=== PATIENT | female | born 1940 | race African-American/Black ===

== ENCOUNTER 2021-06-09 06:25 | Inpatient (IN) ==
[~2021-06-09 06:25] MED LIST: LORazepam 2 MG/1 ML VIAL ONE; NALOXONE 0.4 MG/ML VIAL ONE
[2021-06-09] MEDS ORDERED: PHENYTOIN IV ONE (06:39)
[2021-06-09] MEDS ORDERED: SODIUM CHLORIDE 0.9% IV ONE (06:39)
[2021-06-09] MEDS ORDERED: ETOMIDATE 20 MG/10 ML VIAL IV ONE (06:40)
[2021-06-09] MEDS ORDERED: ROCURONIUM 100 MG/10 ML VIAL IV ONE (06:40)
[2021-06-09 07:16] LABS: Basophils # 0.1 10*3/uL (0.0-0.2); Basophils % 0.4 % (0.0-0.8); Eosinophils # 0.3 10*3/uL (0.0-0.87); Eosinophils % 1.8 % (0.00-10.9); Hematocrit 50.7 VOL% (35.7-47.0); Immature Granulocytes % 0.7 %; Immature Granulocytes Absolute 0.11 #; Lymphocytes # 6.2 10*3/uL (1.4-4.0); Lymphocytes % 40.2 % (21.3-54.2); Mean Corpuscular HGB Conc 29.6 GM/DL (32-36); Mean Corpuscular Volume 88.2 FL (87-102); Monocytes % 7.5 % (1.7-12.7); Neutrophils % 49.4 % (38.7-73.9); Platelet Count 230 T/CUMM (130-400); Red Blood Count 5.75 MC/CUMM (3.8-5.5); Red Cell Distribution Width 16.3 % (9.3-17.3); White Blood Count 15.3 T/CUMM (4-12)
[2021-06-09 07:25] LABS: Alanine Aminotransferase 13 U/L (13-56); Albumin 3.6 G/DL (3.4-5.0); Alkaline Phosphatase 142 U/L (45-117); Aspartate Amino Transferase 15 U/L (0-37); Bilirubin,Total < 0.39 MG/DL (0.20-1.00); Blood Urea Nitrogen 8 MG/DL (7-18); Calcium 9.3 MG/DL (8.5-10.1); Carbon Dioxide 15 MMOL/L (21-32); Estimated Glom Filtration Rate 54 ML/MIN; Glucose 217 MG/DL (74-106); Osmolality,Calculated 281.5 MOS/KG (273-304); Potassium 2.6 MMOL/L (3.5-5.1); Sodium 139 MMOL/L (136-145); Total Protein 9.2 G/DL (6.4-8.2)
[2021-06-09 07:31] LABS: PT Patient Result 10.9 SECS (10.5-12.0); Partial Thromboplastin Time 24.5 SECS (23.8-32.1)
[2021-06-09 07:44] LABS: Salicylate < 2.8 MG/DL (2.8-20)
[2021-06-09 07:45] LABS: Acetaminophen < 2.0 UG/ML (10-30)
[2021-06-09 08:21] LABS: Hyaline Casts,Urine 1 /LPF (0-3); Mucus,Urine Occasional /LPF (Occasional); RBC,Urine 1 /HPF (0-4); Squamous Epithelial Cell,Urine Occasional /HPF (0-10); Urine Appearance Clear (Clear); Urine Color Light Yellow (Yellow)
[2021-06-09] MEDS ORDERED: LABETALOL 20 MG/4 ML SYRINGE IV STA (08:21)
[2021-06-09 08:22] LABS: Bilirubin,Urine Negative (Negative); Blood, Urine Small mg/dL (Negative); Glucose,Urine (UA) Negative (Negative); Ketones,Urine Negative (Negative); Nitrite,Urine Negative (Negative); Protein,Urine >=300 MG/DL; Urine Specific Gravity 1.025 (1.001-1.035); Urine Urobilinogen 0.2 EU/DL (<2.0)
[2021-06-09 08:24] LABS: Barbiturates Screen,Urine Negative (Negative); Benzodiazepines Screen,Urine Negative (Negative); Cannabinoid Screen,Urine Negative (Negative); Opiate Screen,Urine Negative (Negative); Phencyclidine Screen,Urine Negative (Negative)
[2021-06-09] MEDS ORDERED: POTASSIUM CHLORIDE RIDER 20 MEQ/100 ML PREMIX IV STA (08:50)
[2021-06-09] MEDS ORDERED: POTASSIUM CHLORIDE RIDER 20 MEQ/200 ML PREMIX IV STA (08:58)
[2021-06-09 08:59] LABS: Allen Test Positive; Pt O2 Delivery Device Ventilator
[2021-06-09 09:01] LABS: ABG Base Excess -2.6 MMOL/L (-2.5-2.5); ABG HCO3 21.6 MMOL/L (20-26); ABG Oxygen Saturation 98.3 % (95-100); ABG PCO2 35.8 MM HG (35-48); ABG PH 7.398 (7.35-7.45); ABG PO2 114.8 MM HG (80-95); ABG TCO2 22.7 MMOL/L (23-27)
[2021-06-09 09:05] LABS: Lactic Acid 6.3 MMOL/L (0.4-2.0)
[2021-06-09] MEDS ORDERED: ALBUTEROL 2.5 MG/3 ML NEB RESP TX PRN (09:41)
[2021-06-09] MEDS ORDERED: ONDANSETRON 4 MG/2 ML VIAL IV PRN (09:42)
[2021-06-09] MEDS ORDERED: MAGNESIUM SULF RIDER 2 GM/50 ML PREMIX IV PRN (09:44)
[2021-06-09] MEDS ORDERED: MAGNESIUM SULF RIDER 4 GM/100 ML PREMIX IV PRN (09:44)
[2021-06-09] MEDS ORDERED: GLUCAGON 1 MG VIAL IM PRN (09:44)
[2021-06-09] MEDS ORDERED: LORazepam 2 MG/1 ML VIAL IV PRN (09:45)
[2021-06-09] MEDS ORDERED: DEXTROSE 10% 250 ML BAG IV PRN (09:55)
[2021-06-09 10:13] LABS: Hypochromia 1+; Platelet Estimate Normal; Polychromasia Slight
[2021-06-09] MEDS ORDERED: SODIUM CHLORIDE 0.9% 1,000 ML IV ONE (10:24)
[2021-06-09] MEDS: INSULIN REGULAR 100 UNIT/ML SUBCUT SCH ×3 (13:09→23:35)
[2021-06-09] MEDS: ENOXAPARIN 40 MG/0.4 ML SYRINGE SUBCUT SCH (13:10)
[2021-06-09] MEDS: PANTOPRAZOLE 40 MG VIAL IV SCH (13:11)
[2021-06-09] MEDS: PIPERACILLIN/TAZOBACTAM 3,375 MG in SODIUM CHLORIDE 0.9% 100 ML IV SCH ×2 (13:36→20:43)
[2021-06-09] MEDS: SODIUM CHLORIDE 0.9% 1,000 ML IV SCH ×2 (16:00→18:18)
[2021-06-10 03:48] LABS: ABG Base Excess 1.6 MMOL/L (-2.5-2.5); ABG HCO3 25.8 MMOL/L (20-26); ABG PCO2 32.3 MM HG (35-48); ABG PH 7.486 (7.35-7.45); ABG TCO2 21.4 MMOL/L (23-27)
[2021-06-10] MEDS: PIPERACILLIN/TAZOBACTAM 3,375 MG in SODIUM CHLORIDE 0.9% 100 ML IV SCH ×3 (05:39→20:29)
[2021-06-10 06:00] LABS: Basophils # 0.1 10*3/uL (0.0-0.2); Basophils % 0.6 % (0.0-0.8); Eosinophils # 0.2 10*3/uL (0.0-0.87); Hematocrit 36.9 VOL% (35.7-47.0); Immature Granulocytes % 0.7 %; Immature Granulocytes Absolute 0.08 #; Lymphocytes # 2.4 10*3/uL (1.4-4.0); Lymphocytes % 22.2 % (21.3-54.2); Mean Corpuscular HGB Conc 32.2 GM/DL (32-36); Mean Corpuscular Volume 81.5 FL (87-102); Mean Platelet Volume 10.7 FL (9.6-12.0); Monocytes % 9.7 % (1.7-12.7); Neutrophils % 64.8 % (38.7-73.9); Platelet Count 195 T/CUMM (130-400); Red Blood Count 4.53 MC/CUMM (3.8-5.5); Red Cell Distribution Width 16.2 % (9.3-17.3); White Blood Count 10.8 T/CUMM (4-12)
[2021-06-10 06:02] LABS: Hemoglobin 11.9 GM/DL (12.0-16.0)
[2021-06-10 06:40] LABS: Albumin 2.5 G/DL (3.4-5.0); Bilirubin,Total 0.5 MG/DL (0.20-1.00); Calcium 8.6 MG/DL (8.5-10.1); Osmolality,Calculated 281.1 MOS/KG (273-304)
[2021-06-10] MEDS: INSULIN REGULAR 100 UNIT/ML SUBCUT SCH ×3 (06:43→19:02)
[2021-06-10 06:47] LABS: Free T4 (Free Thyroxine) 1.19 NG/DL (0.76-1.46); Thyroid Stimulating Hormone 0.929 uIU/ml (0.358-3.74)
[2021-06-10] MEDS: SODIUM CHLORIDE 0.9% 1,000 ML IV SCH ×2 (07:12→16:24)
[2021-06-10] MEDS: POTASSIUM BICARB EFFERVESCENT 20 MEQ TAB.EFF PER TUBE PRN (09:27)
[2021-06-10] MEDS: POTASSIUM CHLORIDE 20 MEQ TABLET PO SCH ×4 (09:31→20:30)
[2021-06-10] MEDS: PANTOPRAZOLE 40 MG VIAL IV SCH (11:45)
[2021-06-10] MEDS: ENOXAPARIN 40 MG/0.4 ML SYRINGE SUBCUT SCH (11:48)
[2021-06-11] MEDS: INSULIN REGULAR 100 UNIT/ML SUBCUT SCH ×5 (00:33→23:59)
[2021-06-11 03:58] LABS: ABG Base Excess 0.2 MMOL/L (-2.5-2.5); ABG HCO3 24.4 MMOL/L (20-26); ABG Oxygen Saturation 98.9 % (95-100); ABG PH 7.426 (7.35-7.45); ABG PO2 183.4 MM HG (80-95); ABG TCO2 25.6 MMOL/L (23-27)
[2021-06-11] MEDS: SODIUM CHLORIDE 0.9% 1,000 ML IV SCH ×3 (04:09→21:44)
[2021-06-11] MEDS: PIPERACILLIN/TAZOBACTAM 3,375 MG in SODIUM CHLORIDE 0.9% 100 ML IV SCH ×3 (04:47→21:55)
[2021-06-11 05:21] LABS: Basophils # 0.1 10*3/uL (0.0-0.2); Basophils % 0.7 % (0.0-0.8); Eosinophils # 0.2 10*3/uL (0.0-0.87); Eosinophils % 2.3 % (0.00-10.9); Hematocrit 36.9 VOL% (35.7-47.0); Hemoglobin 11.4 GM/DL (12.0-16.0); Immature Granulocytes % 0.8 %; Immature Granulocytes Absolute 0.07 #; Lymphocytes # 1.7 10*3/uL (1.4-4.0); Lymphocytes % 19.2 % (21.3-54.2); Mean Corpuscular HGB Conc 30.9 GM/DL (32-36); Mean Platelet Volume 10.9 FL (9.6-12.0); Platelet Count 148 T/CUMM (130-400); Red Blood Count 4.34 MC/CUMM (3.8-5.5); White Blood Count 8.7 T/CUMM (4-12)
[2021-06-11 05:44] LABS: Calcium 8.4 MG/DL (8.5-10.1); Potassium 3.7 MMOL/L (3.5-5.1)
[2021-06-11] MEDS ORDERED: DEXMEDETOMIDINE 200 MCG in SODIUM CHLORIDE 0.9% 48 ML IV PRN (07:58)
[2021-06-11] MEDS: MULTIVITAMIN LIQUID (CENTRUM) 60 ML BOTTLE PO SCH (09:21)
[2021-06-11] MEDS: ENOXAPARIN 40 MG/0.4 ML SYRINGE SUBCUT SCH (12:25)
[2021-06-11] MEDS: PANTOPRAZOLE 40 MG VIAL IV SCH (13:13)
[2021-06-11] MEDS: DEXMEDETOMIDINE 400 MCG in SODIUM CHLORIDE 0.9% 96 ML IV PRN (15:11)
[2021-06-12] MEDS: DEXMEDETOMIDINE 400 MCG in SODIUM CHLORIDE 0.9% 96 ML IV PRN (02:45)
[2021-06-12 04:51] LABS: Basophils % 0.4 % (0.0-0.8); Eosinophils # 0.2 10*3/uL (0.0-0.87); Eosinophils % 1.8 % (0.00-10.9); Hematocrit 34.4 VOL% (35.7-47.0); Hemoglobin 10.8 GM/DL (12.0-16.0); Immature Granulocytes % 0.9 %; Immature Granulocytes Absolute 0.09 #; Lymphocytes % 20.1 % (21.3-54.2); Mean Corpuscular HGB Conc 31.4 GM/DL (32-36); Mean Corpuscular Volume 83.9 FL (87-102); Mean Platelet Volume 11.4 FL (9.6-12.0); Monocytes % 10.2 % (1.7-12.7); Neutrophils % 66.6 % (38.7-73.9); Platelet Count 163 T/CUMM (130-400); Red Cell Distribution Width 16.9 % (9.3-17.3); White Blood Count 9.7 T/CUMM (4-12)
[2021-06-12 04:58] LABS: Calcium 8.1 MG/DL (8.5-10.1); Osmolality,Calculated 283.8 MOS/KG (273-304)
[2021-06-12] MEDS: PIPERACILLIN/TAZOBACTAM 3,375 MG in SODIUM CHLORIDE 0.9% 100 ML IV SCH ×3 (05:20→20:59)
[2021-06-12 05:36] LABS: ABG Base Excess -0.8 MMOL/L (-2.5-2.5); ABG HCO3 22.5 MMOL/L (20-26); ABG Oxygen Saturation 98.9 % (95-100); ABG PCO2 32.4 MM HG (35-48); ABG PH 7.459 (7.35-7.45); ABG PO2 155.7 MM HG (80-95); ABG TCO2 23.5 MMOL/L (23-27)
[2021-06-12] MEDS: INSULIN REGULAR 100 UNIT/ML SUBCUT SCH ×3 (05:45→17:17)
[2021-06-12] MEDS: SODIUM CHLORIDE 0.9% 1,000 ML IV SCH (06:14)
[2021-06-12] MEDS: FUROSEMIDE 40 MG/4 ML VIAL IV SCH ×2 (08:07→15:34)
[2021-06-12] MEDS: MULTIVITAMIN LIQUID (CENTRUM) 60 ML BOTTLE PO SCH (08:07)
[2021-06-12] MEDS: ENOXAPARIN 40 MG/0.4 ML SYRINGE SUBCUT SCH (11:54)
[2021-06-12] MEDS: PANTOPRAZOLE 40 MG VIAL IV SCH (12:07)
[2021-06-12] MEDS ORDERED: tiZANidine 4 MG TABLET PO PRN (14:46)
[2021-06-12] MEDS: amLODIPine 10 MG TABLET PO SCH (15:35)
[2021-06-12] MEDS ORDERED: FUROSEMIDE 40 MG/4 ML VIAL IV ONE (17:00)
[2021-06-12] MEDS: levETIRAcetam 500 MG TABLET PO SCH (21:00)
[2021-06-13] MEDS: INSULIN REGULAR 100 UNIT/ML SUBCUT SCH ×5 (05:35→22:55)
[2021-06-13] MEDS: PIPERACILLIN/TAZOBACTAM 3,375 MG in SODIUM CHLORIDE 0.9% 100 ML IV SCH ×3 (05:51→21:58)
[2021-06-13 06:36] LABS: Basophils # 0.1 10*3/uL (0.0-0.2); Basophils % 0.4 % (0.0-0.8); Eosinophils # 0.2 10*3/uL (0.0-0.87); Eosinophils % 1.4 % (0.00-10.9); Hematocrit 38.3 VOL% (35.7-47.0); Hemoglobin 12.1 GM/DL (12.0-16.0); Immature Granulocytes % 0.6 %; Immature Granulocytes Absolute 0.07 #; Lymphocytes # 2.9 10*3/uL (1.4-4.0); Lymphocytes % 22.9 % (21.3-54.2); Mean Corpuscular HGB Conc 31.6 GM/DL (32-36); Mean Corpuscular Volume 82.4 FL (87-102); Mean Platelet Volume 10.6 FL (9.6-12.0); Monocytes % 11.7 % (1.7-12.7); Platelet Count 182 T/CUMM (130-400); Red Blood Count 4.65 MC/CUMM (3.8-5.5); Red Cell Distribution Width 16.6 % (9.3-17.3); White Blood Count 12.5 T/CUMM (4-12)
[2021-06-13 06:52] LABS: Calcium 8.7 MG/DL (8.5-10.1); Osmolality,Calculated 278.3 MOS/KG (273-304); Potassium 3.4 MMOL/L (3.5-5.1)
[2021-06-13] MEDS: levETIRAcetam 500 MG TABLET PO SCH ×2 (09:24→21:57)
[2021-06-13] MEDS: FLUoxetine 20 MG CAPSULE PO SCH (09:24)
[2021-06-13] MEDS: amLODIPine 10 MG TABLET PO SCH (09:24)
[2021-06-13] MEDS: POTASSIUM BICARB EFFERVESCENT 20 MEQ TAB.EFF PER TUBE PRN (09:24)
[2021-06-13] MEDS: FUROSEMIDE 40 MG/4 ML VIAL IV SCH (09:25)
[2021-06-13] MEDS: MULTIVITAMIN LIQUID (CENTRUM) 60 ML BOTTLE PO SCH (09:27)
[2021-06-13] MEDS: ENOXAPARIN 40 MG/0.4 ML SYRINGE SUBCUT SCH (12:16)
[2021-06-13] MEDS: PANTOPRAZOLE 40 MG VIAL IV SCH (12:16)
[2021-06-14] MEDS: PIPERACILLIN/TAZOBACTAM 3,375 MG in SODIUM CHLORIDE 0.9% 100 ML IV SCH ×3 (04:39→22:00)
[2021-06-14 06:21] LABS: Basophils # 0.1 10*3/uL (0.0-0.2); Basophils % 0.3 % (0.0-0.8); Eosinophils # 0.1 10*3/uL (0.0-0.87); Eosinophils % 0.5 % (0.00-10.9); Hematocrit 36.1 VOL% (35.7-47.0); Hemoglobin 11.5 GM/DL (12.0-16.0); Immature Granulocytes % 0.7 %; Lymphocytes # 2.6 10*3/uL (1.4-4.0); Lymphocytes % 17.5 % (21.3-54.2); Mean Corpuscular HGB Conc 31.9 GM/DL (32-36); Monocytes % 10.4 % (1.7-12.7); Neutrophils % 70.6 % (38.7-73.9); Platelet Count 177 T/CUMM (130-400); White Blood Count 14.6 T/CUMM (4-12)
[2021-06-14 06:48] LABS: Calcium 8.5 MG/DL (8.5-10.1); Osmolality,Calculated 278.7 MOS/KG (273-304); Potassium 3.2 MMOL/L (3.5-5.1)
[2021-06-14] MEDS: INSULIN REGULAR 100 UNIT/ML SUBCUT SCH ×4 (08:50→20:50)
[2021-06-14] MEDS: levETIRAcetam 500 MG TABLET PO SCH ×2 (09:20→22:00)
[2021-06-14] MEDS: FLUoxetine 20 MG CAPSULE PO SCH (09:20)
[2021-06-14] MEDS: POTASSIUM CHLORIDE 20 MEQ TABLET PO PRN ×2 (09:20→11:49)
[2021-06-14] MEDS: amLODIPine 10 MG TABLET PO SCH (09:20)
[2021-06-14] MEDS: ENOXAPARIN 40 MG/0.4 ML SYRINGE SUBCUT SCH (11:49)
[2021-06-14] MEDS: PANTOPRAZOLE 40 MG VIAL IV SCH (11:49)
[2021-06-14] MEDS: MULTIVITAMIN LIQUID (CENTRUM) 60 ML BOTTLE PO SCH (11:50)
[2021-06-14] MEDS: ALBUTEROL 2.5 MG/3 ML NEB RESP TX SCH ×2 (13:40→19:00)
[2021-06-14] MEDS: MENTHOL/ZINC OXIDE OINT 71 GM JAR TOP SCH ×2 (15:27→22:00)
[2021-06-15] MEDS: ALBUTEROL 2.5 MG/3 ML NEB RESP TX SCH ×4 (01:35→22:31)
[2021-06-15] MEDS: PIPERACILLIN/TAZOBACTAM 3,375 MG in SODIUM CHLORIDE 0.9% 100 ML IV SCH ×3 (05:18→21:27)
[2021-06-15 06:06] LABS: Basophils % 0.3 % (0.0-0.8); Eosinophils # 0.2 10*3/uL (0.0-0.87); Eosinophils % 1.3 % (0.00-10.9); Hematocrit 35.1 VOL% (35.7-47.0); Hemoglobin 11.2 GM/DL (12.0-16.0); Immature Granulocytes % 0.7 %; Lymphocytes # 3.1 10*3/uL (1.4-4.0); Lymphocytes % 20.4 % (21.3-54.2); Mean Corpuscular HGB Conc 31.9 GM/DL (32-36); Mean Corpuscular Volume 82.2 FL (87-102); Mean Platelet Volume 11.8 FL (9.6-12.0); Monocytes % 11.4 % (1.7-12.7); Neutrophils % 65.9 % (38.7-73.9); Platelet Count 178 T/CUMM (130-400); Red Blood Count 4.27 MC/CUMM (3.8-5.5)
[2021-06-15 06:27] LABS: Calcium 8.4 MG/DL (8.5-10.1); Osmolality,Calculated 271.8 MOS/KG (273-304); Potassium 3.4 MMOL/L (3.5-5.1)
[2021-06-15] MEDS: INSULIN REGULAR 100 UNIT/ML SUBCUT SCH ×4 (07:23→20:51)
[2021-06-15] MEDS: FLUoxetine 20 MG CAPSULE PO SCH (10:14)
[2021-06-15] MEDS: POTASSIUM CHLORIDE 20 MEQ TABLET PO PRN ×3 (10:15→15:18)
[2021-06-15] MEDS: levETIRAcetam 500 MG TABLET PO SCH ×2 (10:15→21:27)
[2021-06-15] MEDS: amLODIPine 10 MG TABLET PO SCH (10:15)
[2021-06-15] MEDS: MULTIVITAMIN LIQUID (CENTRUM) 60 ML BOTTLE PO SCH (10:16)
[2021-06-15] MEDS: MENTHOL/ZINC OXIDE OINT 71 GM JAR TOP SCH ×2 (10:22→21:28)
[2021-06-15] MEDS: PANTOPRAZOLE 40 MG VIAL IV SCH (12:15)
[2021-06-15] MEDS: ENOXAPARIN 40 MG/0.4 ML SYRINGE SUBCUT SCH (12:15)
[2021-06-15 23:30] LABS: Squamous Epithelial Cell,Urine Few /HPF (0-10)
[2021-06-15 23:32] LABS: Urine Appearance Clear (Clear); Urine Color Yellow (Yellow)
[2021-06-15 23:33] LABS: Bilirubin,Urine Negative (Negative); Blood, Urine Negative (Negative); Glucose,Urine (UA) Negative (Negative); Ketones,Urine Negative (Negative); Nitrite,Urine Negative (Negative); Protein,Urine Trace MG/DL; Urine Specific Gravity 1.015 (1.001-1.035); Urine pH 6.5 (4.5-8.0)
[2021-06-16] MEDS: ALBUTEROL 2.5 MG/3 ML NEB RESP TX SCH ×4 (01:52→19:42)
[2021-06-16] MEDS: PIPERACILLIN/TAZOBACTAM 3,375 MG in SODIUM CHLORIDE 0.9% 100 ML IV SCH ×3 (04:36→21:19)
[2021-06-16 05:34] LABS: Basophils % 0.3 % (0.0-0.8); Eosinophils # 0.3 10*3/uL (0.0-0.87); Eosinophils % 2.2 % (0.00-10.9); Hematocrit 35.5 VOL% (35.7-47.0); Immature Granulocytes % 0.7 %; Immature Granulocytes Absolute 0.09 #; Lymphocytes % 24.4 % (21.3-54.2); Mean Corpuscular Volume 83.5 FL (87-102); Monocytes % 11.4 % (1.7-12.7); Platelet Count 171 T/CUMM (130-400); Red Blood Count 4.25 MC/CUMM (3.8-5.5); Red Cell Distribution Width 16.1 % (9.3-17.3); White Blood Count 12.4 T/CUMM (4-12)
[2021-06-16 05:57] LABS: Calcium 8.9 MG/DL (8.5-10.1); Potassium 3.7 MMOL/L (3.5-5.1)
[2021-06-16] MEDS: INSULIN REGULAR 100 UNIT/ML SUBCUT SCH ×4 (07:43→21:13)
[2021-06-16] MEDS: POTASSIUM CHLORIDE 20 MEQ TABLET PO PRN (08:39)
[2021-06-16] MEDS: FLUoxetine 20 MG CAPSULE PO SCH (08:39)
[2021-06-16] MEDS: MENTHOL/ZINC OXIDE OINT 71 GM JAR TOP SCH ×2 (08:39→21:19)
[2021-06-16] MEDS: amLODIPine 10 MG TABLET PO SCH (08:39)
[2021-06-16] MEDS: MULTIVITAMIN LIQUID (CENTRUM) 60 ML BOTTLE PO SCH (08:39)
[2021-06-16] MEDS: levETIRAcetam 500 MG TABLET PO SCH ×2 (08:39→21:18)
[2021-06-16] MEDS: PANTOPRAZOLE 40 MG VIAL IV SCH (12:28)
[2021-06-16] MEDS: ENOXAPARIN 40 MG/0.4 ML SYRINGE SUBCUT SCH (12:30)
[2021-06-17] MEDS: ALBUTEROL 2.5 MG/3 ML NEB RESP TX SCH ×4 (00:25→19:57)
[2021-06-17 05:40] LABS: Basophils # 0.1 10*3/uL (0.0-0.2); Basophils % 0.6 % (0.0-0.8); Eosinophils # 0.3 10*3/uL (0.0-0.87); Eosinophils % 3.1 % (0.00-10.9); Hematocrit 34.3 VOL% (35.7-47.0); Hemoglobin 10.9 GM/DL (12.0-16.0); Immature Granulocytes % 0.9 %; Lymphocytes # 2.5 10*3/uL (1.4-4.0); Lymphocytes % 23.2 % (21.3-54.2); Mean Corpuscular HGB Conc 31.8 GM/DL (32-36); Mean Corpuscular Volume 82.3 FL (87-102); Mean Platelet Volume 10.3 FL (9.6-12.0); Neutrophils % 62.2 % (38.7-73.9); Platelet Count 201 T/CUMM (130-400); Red Blood Count 4.17 MC/CUMM (3.8-5.5); Red Cell Distribution Width 15.8 % (9.3-17.3); White Blood Count 10.9 T/CUMM (4-12)
[2021-06-17 05:56] LABS: Calcium 8.7 MG/DL (8.5-10.1); Osmolality,Calculated 274.7 MOS/KG (273-304); Potassium 3.8 MMOL/L (3.5-5.1)
[2021-06-17] MEDS: INSULIN REGULAR 100 UNIT/ML SUBCUT SCH ×4 (07:18→21:24)
[2021-06-17] MEDS: APIXABAN 5 MG TABLET PO SCH ×2 (09:36→21:21)
[2021-06-17] MEDS: levETIRAcetam 500 MG TABLET PO SCH ×2 (09:36→21:20)
[2021-06-17] MEDS: FLUoxetine 20 MG CAPSULE PO SCH (09:36)
[2021-06-17] MEDS: amLODIPine 10 MG TABLET PO SCH (09:36)
[2021-06-17] MEDS: MULTIVITAMIN LIQUID (CENTRUM) 60 ML BOTTLE PO SCH (10:25)
[2021-06-17] MEDS: PANTOPRAZOLE 40 MG VIAL IV SCH (11:55)
[2021-06-17] MEDS: MULTIVITAMIN (CENTRUM) TABLET PO SCH (11:55)
[2021-06-17] MEDS: MENTHOL/ZINC OXIDE OINT 71 GM JAR TOP SCH ×2 (11:59→21:23)
[2021-06-18] MEDS: ALBUTEROL 2.5 MG/3 ML NEB RESP TX SCH ×4 (01:01→19:20)
[2021-06-18 05:57] LABS: Basophils % 0.4 % (0.0-0.8); Eosinophils # 0.3 10*3/uL (0.0-0.87); Eosinophils % 2.5 % (0.00-10.9); Hematocrit 36.8 VOL% (35.7-47.0); Hemoglobin 11.3 GM/DL (12.0-16.0); Lymphocytes # 2.5 10*3/uL (1.4-4.0); Lymphocytes % 23.7 % (21.3-54.2); Mean Corpuscular HGB Conc 30.7 GM/DL (32-36); Mean Corpuscular Volume 85.4 FL (87-102); Mean Platelet Volume 10.5 FL (9.6-12.0); Monocytes % 9.9 % (1.7-12.7); Neutrophils % 62.5 % (38.7-73.9); Platelet Count 222 T/CUMM (130-400); Red Blood Count 4.31 MC/CUMM (3.8-5.5); Red Cell Distribution Width 15.8 % (9.3-17.3); White Blood Count 10.4 T/CUMM (4-12)
[2021-06-18 06:50] LABS: Calcium 8.7 MG/DL (8.5-10.1); Potassium 4.4 MMOL/L (3.5-5.1)
[2021-06-18] MEDS: INSULIN REGULAR 100 UNIT/ML SUBCUT SCH ×4 (07:56→22:38)
[2021-06-18] MEDS: FLUoxetine 20 MG CAPSULE PO SCH (08:43)
[2021-06-18] MEDS: levETIRAcetam 500 MG TABLET PO SCH ×2 (08:43→20:58)
[2021-06-18] MEDS: MULTIVITAMIN (CENTRUM) TABLET PO SCH (08:43)
[2021-06-18] MEDS: amLODIPine 10 MG TABLET PO SCH (08:43)
[2021-06-18] MEDS: APIXABAN 5 MG TABLET PO SCH ×2 (08:43→20:58)
[2021-06-18] MEDS: PANTOPRAZOLE 40 MG VIAL IV SCH (13:33)
[2021-06-18] MEDS: MENTHOL/ZINC OXIDE OINT 71 GM JAR TOP SCH ×2 (13:34→20:58)
[2021-06-18] MEDS: PANTOPRAZOLE 40 MG TABLET PO SCH (16:27)
[2021-06-19] MEDS: ALBUTEROL 2.5 MG/3 ML NEB RESP TX SCH ×3 (00:28→13:49)
[2021-06-19] MEDS: FLUoxetine 20 MG CAPSULE PO SCH (08:51)
[2021-06-19] MEDS: levETIRAcetam 500 MG TABLET PO SCH (08:51)
[2021-06-19] MEDS: PANTOPRAZOLE 40 MG TABLET PO SCH (08:51)
[2021-06-19] MEDS: amLODIPine 10 MG TABLET PO SCH (08:51)
[2021-06-19] MEDS: MULTIVITAMIN (CENTRUM) TABLET PO SCH (08:51)
[2021-06-19] MEDS: APIXABAN 5 MG TABLET PO SCH (08:51)
[2021-06-19] MEDS: INSULIN REGULAR 100 UNIT/ML SUBCUT SCH ×2 (09:36→11:55)
[2021-06-19] MEDS: MENTHOL/ZINC OXIDE OINT 71 GM JAR TOP SCH (11:56)
[2021-06-19 12:15] VITALS: BP 159/70
[2021-06-25] MEDS ORDERED: APIXABAN 5 MG TABLET PO SCH (09:00)
== END 2021-06-19 15:36 | disposition swing bed (61) | DRG 56 ==
LOC: N.ED 06:25 → SUATTDRO 09:41 → N.EDINP 09:41 → N.ICU 10:30 → N.3E 06-12 22:21
PROVIDERS: ADMIT Internal Medicine; ATTEND Hospitalist

== ENCOUNTER 2022-03-04 11:40 | Observation (INO) ==
[2022-03-04 13:45] LABS: Hyaline Casts,Urine 1 /LPF (0-3); RBC,Urine 1 /HPF (0-4)
[2022-03-04 13:54] LABS: Urine Appearance Clear (Clear); Urine Color Yellow (Yellow)
[2022-03-04 13:55] LABS: Bilirubin,Urine Negative (Negative); Blood, Urine Negative (Negative); Glucose,Urine (UA) Negative (Negative); Ketones,Urine Negative (Negative); Nitrite,Urine Negative (Negative); Protein,Urine Negative (Negative); Urine Urobilinogen 0.2 eU/dL (<2.0); Urine pH 7.5 (4.5-8.0)
[2022-03-04 14:21] LABS: Basophils % 0.3 % (0.0-0.8); Eosinophils # 0.1 10*3/uL (0.0-0.87); Eosinophils % 0.6 % (0.00-10.9); Hematocrit 42.5 VOL% (35.7-47.0); Hemoglobin 13.3 GM/DL (12.0-16.0); Immature Granulocytes % 1.3 %; Immature Granulocytes Absolute 0.13 #; Lymphocytes # 1.9 10*3/uL (1.4-4.0); Lymphocytes % 19.4 % (21.3-54.2); Mean Corpuscular HGB Conc 31.3 GM/DL (32-36); Mean Platelet Volume 10.3 FL (9.6-12.0); Monocytes # 0.5 10*3/uL (0.11-0.8); Monocytes % 4.5 % (1.7-12.7); Neutrophils % 73.9 % (38.7-73.9); Platelet Count 226 T/CUMM (130-400); Red Blood Count 5.06 MC/CUMM (3.8-5.5); Red Cell Distribution Width 16.3 % (9.3-17.3); White Blood Count 9.9 T/CUMM (4-12)
[2022-03-04 14:51] LABS: Albumin 3.5 G/DL (3.4-5.0); Bilirubin,Total 0.4 MG/DL (0.20-1.00); Calcium 9.2 MG/DL (8.5-10.1); Osmolality,Calculated 279.3 MOS/KG (273-304); Potassium 3.8 MMOL/L (3.5-5.1); Thyroid Stimulating Hormone 1.92 uIU/ml (0.358-3.74); Total Protein 8.6 G/DL (6.4-8.2)
[2022-03-04] MEDS ORDERED: METOPROLOL TARTRATE 5 MG/5 ML VIAL IV STA (16:28)
[2022-03-04] MEDS ORDERED: hydrALAZINE 20 MG/1 ML VIAL IV STA (16:29)
[2022-03-04] MEDS ORDERED: amLODIPine 5 MG TABLET PO STA (16:42)
[2022-03-04] MEDS ORDERED: ACETAMINOPHEN 325 MG TABLET PO PRN (16:45)
[2022-03-04] MEDS ORDERED: DOCUSATE SODIUM 100 MG CAPSULE PO PRN (16:45)
[2022-03-04] MEDS ORDERED: ONDANSETRON 4 MG/2 ML VIAL IV PRN (16:45)
[2022-03-04] MEDS ORDERED: hydrALAZINE 20 MG/1 ML VIAL IV PRN (16:45)
[2022-03-04] MEDS ORDERED: LEVOFLOXACIN INJ 500 MG/100 ML PREMIX IV SCH (17:00)
[2022-03-04] MEDS: DORZOLAMIDE/TIMOLOL OPH SOLN 10 ML BOTTLE BOTH EYES SCH (20:27)
[2022-03-04] MEDS: hydrALAZINE 10 MG TABLET PO SCH (20:32)
[2022-03-04] MEDS: APIXABAN 5 MG TABLET PO SCH (20:32)
[2022-03-04] MEDS: levETIRAcetam 500 MG TABLET PO SCH (20:33)
[2022-03-04] MEDS ORDERED: hydrALAZINE 25 MG TABLET PO SCH (21:00)
[2022-03-05 05:15] LABS: Basophils % 0.3 % (0.0-0.8); Eosinophils % 0.3 % (0.00-10.9); Hemoglobin 11.3 GM/DL (12.0-16.0); Immature Granulocytes % 0.5 %; Immature Granulocytes Absolute 0.06 #; Lymphocytes # 3.1 10*3/uL (1.4-4.0); Lymphocytes % 25.9 % (21.3-54.2); Mean Corpuscular HGB Conc 32.3 GM/DL (32-36); Mean Corpuscular Volume 83.3 FL (87-102); Mean Platelet Volume 10.6 FL (9.6-12.0); Monocytes # 1.3 10*3/uL (0.11-0.8); Monocytes % 11.3 % (1.7-12.7); Neutrophils % 61.7 % (38.7-73.9); Platelet Count 197 T/CUMM (130-400); Red Cell Distribution Width 16.2 % (9.3-17.3); White Blood Count 11.9 T/CUMM (4-12)
[2022-03-05 05:36] LABS: Calcium 8.9 MG/DL (8.5-10.1); Osmolality,Calculated 275.5 MOS/KG (273-304); Potassium 3.5 MMOL/L (3.5-5.1)
[2022-03-05] MEDS ORDERED: FUROSEMIDE 40 MG/4 ML VIAL IV SCH (08:00)
[2022-03-05] MEDS ORDERED: LORATADINE 10 MG TABLET PO SCH (09:00)
[2022-03-05] MEDS ORDERED: FLUTICASONE 50 MCG NASAL SPRAY 16 GM BOTTLE BOTH NARES SCH (09:00)
[2022-03-05] MEDS ORDERED: amLODIPine 10 MG TABLET PO SCH (09:00)
[2022-03-05] MEDS: hydrALAZINE 10 MG TABLET PO SCH (11:36)
[2022-03-05] MEDS: APIXABAN 5 MG TABLET PO SCH (11:37)
[2022-03-05] MEDS: levETIRAcetam 500 MG TABLET PO SCH (11:39)
[2022-03-05] MEDS: DORZOLAMIDE/TIMOLOL OPH SOLN 10 ML BOTTLE BOTH EYES SCH (11:41)
[2022-03-05 15:51] VITALS: BP 118/56
== END 2022-03-05 17:10 | disposition home or self-care (01) ==
LOC: N.ED 11:40 → N.EDINP 11:40 → SUATTDRO 15:31 → N.3E 16:43
PROVIDERS: ADMIT Hospitalist; ATTEND Internal Medicine